=== PATIENT | female | born 1975 | race Caucasian/White ===

== ENCOUNTER 2018-07-12 17:16 | Emergency (ER) | payer MEDICAID ==
[~2018-07-12] VITALS: Ht 175.3 cm; Wt 86.2 kg
[~2018-07-12 17:16] MED LIST: MOBIC15 MG PO; RITALIN LA10 MG PO; SUBOXONE 8 MG-1 EAC3 SL
[2018-07-12 17:19] VITALS: BP 131/80
[2018-07-12] MEDS ORDERED: RITALIN5 MG PO (17:23)
[2018-07-12] MEDS ORDERED: AMOXICILLIN500 M1 PO (18:25)
== END 2018-07-12 18:35 | disposition home or self-care (01) ==
LOC: ER 17:16
DX: K08.89 Other specified disorders of teeth and supporting structures (principal)

== ENCOUNTER 2019-05-29 08:25 | Emergency (ER) | payer MEDICAID ==
[~2019-05-29] VITALS: Ht 172.7 cm; Wt 77.1 kg
[~2019-05-29 08:25] MED LIST changes: +AMOXICILLIN500 M1 PO; +RITALIN5 MG PO
[2019-05-29 09:11] LABS: ABSOLUTE NEUTROPHILS 3.4 thou/uL (1.4-8.2); BASOPHILS 0.4 % (0.0-2.0); EOSINOPHILS 2.2 % (0.0-3.0); HEMATOCRIT 40.3 % (37.0-47.0); HEMOGLOBIN 13.4 gm/dL (12.0-15.0); LYMPHOCYTES 25.2 % (24.0-44.0); MCH 29.4 pg (26.0-34.0); MCHC 33.2 g/dL (28.0-37.0); MCV 88.5 fL (80.0-100.0); MONOCYTES 8.5 % (1.0-8.0); PLATELET COUNT 262 thou/uL (150-400); POLYS 63.7 % (36.0-66.0); RBC 4.56 mil/uL (4.20-5.00); RDW 13.4 % (10.5-14.5); WBC 5.3 thou/uL (4.0-11.0)
[2019-05-29 09:13] LABS: CALCIUM 8.7 mg/dL (8.5-10.1); CREATININE 0.8 mg/dL (0.6-1.0); POTASSIUM 3.4 mmol/L (3.5-5.1)
[2019-05-29] MEDS ORDERED: ONDANSETRON ODT4 MG PO (09:48)
[2019-05-29 09:56] VITALS: BP 104/69
== END 2019-05-29 09:59 | disposition home or self-care (01) ==
LOC: ER 08:25
PROVIDERS: Emergency Medicine
DX: R11.2 Nausea with vomiting, unspecified (principal); M54.9 Dorsalgia, unspecified; G89.29 Other chronic pain